=== PATIENT | female | born 1995 | race Caucasian/White ===

== ENCOUNTER 2021-01-23 11:00 | Emergency (ER) | payer OTHER ==
[2021-01-23] MEDS ORDERED: methylPREDNISolone Sod Succ/PF 125 MG/2 ML VIAL ONE (11:19)
== END 2021-01-23 11:27 | disposition home or self-care (01) ==
LOC: BURERS 11:00
DX: T78.40XA Allergy, unspecified, initial encounter (principal); R21 Rash and other nonspecific skin eruption
CPT/HCPCS: 96374; J2930